=== PATIENT | male | born 1975 | race Caucasian/White ===

== ENCOUNTER 2024-03-14 20:10 | Emergency (ER) | payer OTHER, SELFPAY ==
[2024-03-14 20:10] VITALS: BMI 24.5
[2024-03-14 20:20] VITALS: BP 147/87
[2024-03-14 20:38] LABS: % Basophils 0.5 % (0-2); % Eosinophils 1.1 % (0-6); % Immature Granulocytes 0.2 % (0-0.5); % Lymphocytes 8.9 % (20.5-51.1); % Monocytes 7.1 % (1.7-9.3); % Neutrophils 82.2 % (42.2-75.2); Absolute Eosinophils 0.1 10^3/uL (0-0.7); Absolute Lymphocytes 0.5 10^3/uL (1.2-3.4); Absolute Monocytes 0.4 10^3/uL (0.1-0.6); Absolute Neutrophils 4.5 10^3/uL (1.4-6.5); Hematocrit 39.6 % (39.0-52.0); Hemoglobin 13.8 g/dL (13.0-18.0); Mean Corp Hgb Conc. 34.8 g/dL (33.0-37.0); Mean Corpuscular Hgb 30.6 pg (27.0-31.0); Mean Corpuscular Volume 87.8 fL (80.0-94.0); Mean Platelet Volume 8.8 fL (7.4-10.4); Nucleated Red Blood Cells % 0 % (-); Platelet Count 211 10^3/uL (130-400); Red Blood Cell Count 4.51 10^6/uL (4.70-6.10); Red Cell Dist. Width 12.6 % (11.5-14.5); White Blood Cell Count 5.5 10^3/uL (4.8-10.8)
[2024-03-14 21:01] LABS: ALT (SGPT) 21 U/L (0-50); AST (SGOT) 26 U/L (17-59); Albumin 4.8 g/dl (3.5-5.0); Alkaline Phosphatase 71 U/L (38-126); Blood Urea Nitrogen 20 mg/dl (9-20); Carbon Dioxide 24 mmol/L (22-30); Chloride 104 mmol/L (98-107); Creatine Phosphokinase 176 U/L (55-170); Glucose 100 mg/dl (70-99); Potassium 4.2 mmol/L (3.5-5.1); Sodium 135 mmol/L (135-145); Total Bilirubin 0.6 mg/dl (0.2-1.3); Total Protein 7.8 g/dl (6.3-8.2); eGFR > 60.00
[2024-03-14 21:20] VITALS: BP 149/94
[2024-03-14 22:00] VITALS: BP 137/81
[2024-03-14 22:08] LABS: Urine Albumin Negative (Neg - Trace); Urine Bilirubin Negative (Negative); Urine Character Clear (Clear); Urine Color Yellow; Urine Glucose Negative (Negative); Urine Ketone Trace (Negative); Urine Leukocyte Negative (Negative); Urine Nitrite Negative (Negative); Urine Occult Blood Negative (Negative); Urine Urobilinogen Negative (Neg - 1+)
--- NOTE | 2024-03-14 22:24 | ED.GENMED ---
History of Present Illness
<KARIN Castro - Last Filed: 03/14/24 23:27>
General
Chief Complaint: Musculo-Skeletal Complaint
Source: patient
Exam Limitations: none
Time Seen by Provider: 03/14/24 21:12
Travel History
Have you had any contact with someone who has COVID-19?: No
Do you have any symptoms of coronavirus? Fever > 100 degrees, chills, cough, shortness of breath, sore throat, loss of taste or smell, muscle aches, or headache?: No
History of Present Illness
History of Present Illness:
This is a 48 year old male that comes in with c/o burning in his hamstrings and into his calf. States that this is worse with standing. State that he went to see the PCP on Tuesday as he had this area of swelling on the right knee. States that there
was a very small open spot that was draining fluid. States that he was told that this could be Bursitis. States that he was to keep the area covered and clean and was placed on Bactrim. State that he took his first dose labs night between 7-8pm.
Today when he got up to the he had pain and burning in both his legs. States that he thought it was form doing outside work over the weekend. States that he went to work and he was sitting a lot. States that when he stood up it caused the
burning down his legs. States that by the end of the day the pain was so bad that he couldn't even stand to pee he had to sit down. States that he went to and was told to come to the ER for r/o Rabdo. Denies any fever, chills, chest pain, SOB,
nausea, vomiting, diarrhea.
Past History
<KARIN Castro - Last Filed: 03/14/24 23:27>
Past History
ED Past Medical History: Other ([place]-Schlatter disease)
ED Past Surgical History: None
Social History
Tobacco: Non-smoker
Alcohol: Occasional
Personal:
Living: with family
Employment: Employed
Review of Systems
<KARIN Castro - Last Filed: 03/14/24 23:27>
Review of Systems
All Other Systems: ROS reviewed and negative except as documented in HPI and ROS
Constitutional: Reports no symptoms
EENT: Reports no symptoms
Respiratory: Reports no symptoms
Cardiac: Reports no symptoms
ABD/GI: Reports no symptoms
: Reports no symptoms
Musculoskeletal: Reports other (Burning and pain in both hamstrings and into calf)
Skin: Reports no symptoms
Neurological: Reports no symptoms
Psychiatric: Reports no symptoms
Phy Exam
<KARIN Castro - Last Filed: 03/14/24 23:27>
General Physical Exam
General Presentation: well appearing and no apparent distress
General age: appears stated age
General Skin: warm and dry
General Habitus: normal
General Mental: alert
General Hydration: appears well hydrated
ENT Exam
ENT Exam: TM's normal, pharynx normal and neck supple
Eye Exam
Eye Exam: EOMI
Cardiovascular Exam
Cardiovascular Exam: regular rate/rhythm, no edema, no murmur and normal peripheral pulses
Pulmonary Exam
Pulmonary Exam: lungs clear, no respiratory distress, no rales, chest non tender, no crackles, no rhonchi, no wheezing and no cough
Musculoskeletal Exam
Musculoskeletal Exam: full ROM and no edema
Skin Exam
Skin Exam: normal color, warm/dry, no rash, no petechia and other (Small pin hole noted at the base of the right knee )
Psychiatric Exam
Psychiatric Exam: normal mood/affect
Course
<KARIN Castro - Last Filed: 04/17/24 23:27>
Orders/Labs/Results
Orders:
Orders
03/14/24 20:31
CPK [Creatine Phosphokinase] Urgent
Complete Blood Count/With Diff Urgent
Comprehensive Metabolic Panel Urgent
03/14/24 21:58
Urinalysis Reflex To Culture Urgent
Date Specimen was Collected: 03/14/24
Time Specimen was Collected: 20:22
Abnormal Lab Results
03/14/24 03/14/24
20:31 21:58
RBC 4.51 L 10^6/uL
(4.70-6.10)
Absolute Lymphs (auto) 0.5 L 10^3/uL
(1.2-3.4)
Neutrophils % 82.2 H %
(42.2-75.2)
Lymphocytes % 8.9 L %
(20.5-51.1)
Glucose 100 H mg/dl
(70-99)
Creatine Kinase 176 H U/L
(55-170)
Urine Ketones Trace A
(Negative)
03/14/24 20:31
03/14/24 20:31
Glucose nonfasting, CPK normal at 176, Urine negative for infection.
Vital Signs
Initial and Last Documented VS:
Initial Vital Signs
Temp Pulse Resp Pulse Ox
98.9 F 75 18 100
03/14/24 20:19 03/14/24 20:19 03/14/24 20:19 03/14/24 20:19
Last Documented Vital Signs
Temp Pulse Resp BP Pulse Ox
98.9 F 75 18 137/81 97
03/14/24 20:19 03/14/24 20:19 03/14/24 20:19 03/14/24 22:00 03/14/24 22:15
<Veronica Gold MD - Last Filed: 03/14/24 23:20>
Orders/Labs/Results
Orders:
Orders
03/14/24 20:31
CPK [Creatine Phosphokinase] Urgent
Complete Blood Count/With Diff Urgent
Comprehensive Metabolic Panel Urgent
03/14/24 21:58
Urinalysis Reflex To Culture Urgent
Date Specimen was Collected: 03/14/24
Time Specimen was Collected: 20:22
Abnormal Lab Results
03/14/24 03/14/24
20:31 21:58
RBC 4.51 L 10^6/uL
(4.70-6.10)
Absolute Lymphs (auto) 0.5 L 10^3/uL
(1.2-3.4)
Neutrophils % 82.2 H %
(42.2-75.2)
Lymphocytes % 8.9 L %
(20.5-51.1)
Glucose 100 H mg/dl
(70-99)
Creatine Kinase 176 H U/L
(55-170)
Urine Ketones Trace A
(Negative)
03/14/24 20:31
03/14/24 20:31
Vital Signs
Initial and Last Documented VS:
Initial Vital Signs
Temp Pulse Resp Pulse Ox
98.9 F 75 18 100
03/14/24 20:19 03/14/24 20:19 03/14/24 20:19 03/14/24 20:19
Last Documented Vital Signs
Temp Pulse Resp BP Pulse Ox
98.9 F 75 18 137/81 97
03/14/24 20:19 03/14/24 20:19 03/14/24 20:19 03/14/24 22:00 03/14/24 22:15
<KARIN Castro - Last Filed: 03/14/24 23:27>
MDM/Problems Addressed
Differential Diagnosis Includes:
Reaction to Bactrim.
MDM/Problems Addressed:
This is a 48 year old male that comes in with c/o burning pain in both hamstrings and down into calf. States that this started after he took Bactrim last night and he awoke with pain. This continued to get worse throughout the day until he was
unable to stand to pee. Patient was seen at and told to come to the ER for further evaluation.
Will get labs.
Spoke with Dr. Gold and she saw patient. Explained to him also that this is most likely a reaction to the Bactrim. Told patient to stop the medication and follow up with the Family doctor as needed. Return with any concerns
Chronic conditions affecting care:
NA
Acute Exacerbation and/or Progression of Chronic Illness:
NA
<KARIN Castro - Last Filed: 03/14/24 23:27>
*Pulse Oximetry
Patient hypoxic: no
*EKG
Interpreted by ED Provider?: NA
Rate: EKG- N/A
*Integration Project Manager Interpretation
Rate: Integration Project Manager- N/A
*Critical Care Note
Total Time (30-74mins, 75-104mins- exclusive of procedures): Not Applicable
ED Attending Note
<KARIN Castro - Last Filed: 03/14/24 23:27>
-
Portions of this chart may have been created with voice recognition software.� Occasional wrong word or��sound alike� substitutions may have occurred due to the inherent limitations of voice recognition software.
<Veronica Gold MD - Last Filed: 03/14/24 23:20>
ED Attending Note
Patient seen and examined by attending physician: Yes
I performed the substantive portion of visit, reviewed & personally made and approve the management plan that is documented in note by myself or VELVET.: Yes
ED Attending Note:
48-year-old male who noted over the weekend that his right knee was swollen, followed by clearish drainage from a small specific area. He saw his primary care doctor, was started on Bactrim to prevent infection. He did not take his first dose
until last night, and then another dose this morning. However, as of late Tuesday, early yesterday here he started to see improvement of the swelling of his knee. Of note, he did not ever notice warmth, redness or significant discomfort of his
knee. He denies recent trauma or falls. Today he noted the gradual onset of intense burning in the posterior aspect of his legs bilaterally that is noted specifically really with standing, and relieved with sitting, laying down, or activity such
as walking. He denies perianal anesthesia, bowel or bladder incontinence, abdominal pain, fever, chills, sweats, weakness, ataxia/imbalance, or other complaints. On exam, motor 5 out of 5, sensory intact, 2+ patellar reflexes bilaterally, no
clonus, gait is normal. The right knee is with minimal injury from a patellar swelling without associated redness, warmth, tenderness, drainage, fluctuance, or other abnormalities. Full range of motion. No findings to suggest central cord related
symptoms, no motor findings, symptoms are very positional related and suggestive of neuropathy/neuritis. This is listed as a known potential side effect of Bactrim and his symptoms started shortly after starting Bactrim. Patient advised to
discontinue Bactrim, neurology follow-up, and very very close instructions discussed with him and regarding reasons to return to the emergency department such as worsening symptoms, motor weakness, incontinence, etc.
Discharge Plan
Departure
Patient Disposition: Home (Routine Discharge)
Date of Disposition: 03/14/24
Time of Disposition: 23:22
Patient with high blood pressure during this ER visit?: Yes
Condition: Good
Covid-19: Not Applicable
Discharge Problem:
Nerve pain, Musculoskeletal leg pain, Medication adverse effect
Instructions: Adverse Drug Reactions, Adult ED, BLOOD PRESSURE
Referrals:
Sloan Grace, DO [Family Provider] - Follow up in 2-3 days
Activity Restrictions/Additional Instructions:
As discussed, your blood work is normal along with the CPK. This is most likely a drug reaction. PLEASE STOP THE BACTRIM. Follow up with the family doctor for recheck. IF YOU HAVE PAIN GETS WORSE OR YOU HAVE ANY OTHER SYMPTOMS PLEASE RETURN TO THE
EMERGENCY ROOM.
Interventions
Interventions:
*Risk Screen - Suicide Last Done: 03/14/24 20:21
*General Assessment Last Done: 03/14/24 20:20
*Neglect/Abuse Screening Last Done: 03/14/24 20:21
*ED COVID-19 Vaccine History Last Done: 03/14/24 20:20
ED-Musculoskeletal Assessment Last Done: 03/14/24 21:27
Discharge Date and Time
Print Language: TELUGU
== END 2024-03-14 23:30 | disposition home or self-care (01) ==
LOC: EMR 20:10
PROVIDERS: Emergency Medicine; EMERGENCY PHYSICIAN Emergency Medicine; FAMILY PHYSICIAN Family Medicine
DX: M79.2 Neuralgia and neuritis, unspecified (principal); M79.606 Pain in leg, unspecified; T50.905A Adverse effect of unspecified drugs, medicaments and biological substances, initial encounter; Y92.9 Unspecified place or not applicable
CPT/HCPCS: 99283; 80053; 81003; 82550; 85025